=== PATIENT | female | born 1955 | race Caucasian/White ===

== ENCOUNTER 2023-06-28 07:57 | Day surgery (SDC) | payer MEDICARE, BC ==
[~2023-06-28] VITALS: Ht 167.6 cm; Wt 72.3 kg
[~2023-06-28 07:57] MED LIST: ASPIR 8181 M1 PO; EPINEPhrine HCl 1 MG/ML 1ML Amp ONE; Lactated Ringer's 1,000 ML IV ONE; Ropivacaine 0.5% HCl/Pf 5 MG/ML 20ML VIAL ONE
[2023-06-28] MEDS ORDERED: NS 50 ML IV ONE (08:08)
[2023-06-28] MEDS ORDERED: CeFAZolin Sodium 2,000 MG VIAL ONE (08:08)
[2023-06-28] MEDS ORDERED: Lactated Ringer's 1,000 ML IV ONE (08:27)
[2023-06-28] MEDS ORDERED: FentaNYL Citrate 50 MCG/ML 2 ML Injection ONE (09:57)
[2023-06-28] MEDS ORDERED: propofoL 20 ML IV ONE (09:57)
[2023-06-28] MEDS ORDERED: Dexamethasone Sod Phos 10 MG/ML 1ML VIAL ONE (09:59)
[2023-06-28] MEDS ORDERED: Ondansetron HCl 2 MG / ML 2ML Vial ONE (09:59)
[2023-06-28] MEDS ORDERED: EPINEPhrine HCl 1 MG/ML 1ML Amp XX ONE ×2 (10:11)
--- NOTE | 2023-06-28 10:14 | NUR ---
06/28/23 1014 Lenin Chou ROPIVACAINE 0.5% 20 MLS MIXED & VERIFIED W/ EPI 0.05 ML (1MG/ML) TO MAKE ROPIVACAINE 0.5% 1:200,000 FOR INJECTION AT OPSITE BY DR SCHWARTZ.
[2023-06-28 10:54] VITALS: BP 147/96
--- NOTE | 2023-06-28 10:54 | NUR ---
06/28/23 1054 ЕЛЕНА VEGA O2 SATS DROPPED TO 89% RA ; FACETENT APPLIED W/ O2 10L. WOKE PT UP O2 100%. FACETENT REMOVED AND PT O2 SATS MAINTAINED 96% RA
--- NOTE | 2023-06-28 11:36 | NUR ---
06/28/23 1136 MARCIA BONILLA PT ALERT AND TALKING, TELLING MANY STORIES. VERY POLITE AND FRIENDLY. SON AT BEDSIDE FOR DC INSTRUCTIONS.
== END 2023-06-28 11:28 | disposition home or self-care (01) ==
LOC: ORSCSDS 07:57
PROVIDERS: Podiatrist Foot & Ankle Surgery
PROC: 0JBQ0ZX Excision of Right Foot Subcutaneous Tissue and Fascia, Open Approach, Diagnostic (ICD-10-PCS; principal; 2023-06-28 09:15)
DX: M67.471 Ganglion, right ankle and foot (principal); I10 Essential (primary) hypertension; Z79.82 Long term (current) use of aspirin
CPT/HCPCS: 88305; J0171; J0690; J1100; J2405; J2704; J2795; J3010; J7120

== ENCOUNTER 2023-07-14 13:27 | Emergency (ER) | payer MEDICARE, BC ==
[~2023-07-14] VITALS: Ht 165.1 cm; Wt 72.6 kg
[~2023-07-14 13:27] MED LIST changes: -EPINEPhrine HCl 1 MG/ML 1ML Amp ONE; -Lactated Ringer's 1,000 ML IV ONE; -Ropivacaine 0.5% HCl/Pf 5 MG/ML 20ML VIAL ONE
[2023-07-14 13:43] VITALS: BP 121/87
[2023-07-14 15:17] LABS: Body Fluid Crystals NEG (NEGATIVE)
[2023-07-14 15:24] LABS: BODY FLUID RBC 0.013 M/mm3 (0-0)
[2023-07-14 15:33] LABS: RBC Count, Synovial Fluid 13000 /mm3 (0-0)
[2023-07-14 15:34] LABS: WBC Count, Synovial Fluid 54300 /mm3 (0-180)
[2023-07-14 16:20] LABS: Color, Synovial Fluid Dark Yellow (None-P Yel); Monocytes/Macrophages, Synovia 5 % (0-65); Neutrophils, Synovial Fluid 95 % (0-24)
[2023-07-14 16:21] LABS: Appearance, Synovial Fluid Cloudy (Clear)
== END 2023-07-14 15:06 | disposition home or self-care (01) ==
LOC: ER 13:27
PROVIDERS: Physician Assistant
DX: M25.462 Effusion, left knee (principal); Z88.6 Allergy status to analgesic agent
CPT/HCPCS: 20610; 73562-LT; 89051; 89060; 99283-25